=== PATIENT | male | born 1955 | race Native Hawaiian/Other Pacific Islander ===

== ENCOUNTER 2019-04-06 10:08 | Outpatient (CLI) | payer BC | END 2019-04-06 20:33 | disposition home or self-care (01) | LOC: RAD 10:08 | DX: Z01.818 Encounter for other preprocedural examination (principal); M79.604 Pain in right leg; R22.41 Localized swelling, mass and lump, right lower limb ==

== ENCOUNTER 2022-08-13 10:09 | Outpatient (CLI) | payer BC | END 2022-08-13 19:03 | disposition home or self-care (01) | LOC: RAD 10:09 | PROVIDERS: ATTEND Internal Medicine | DX: M79.641 Pain in right hand (principal) ==